=== PATIENT | male | born 1980 | race Caucasian/White ===

== ENCOUNTER 2016-08-20 03:22 | Emergency (ER) | payer MEDICAID, OTHER ==
[~2016-08-20] VITALS: Ht 180.3 cm; Wt 77.3 kg
[~2016-08-20 03:22] MED LIST: NOCURR
[2016-08-20] MEDS ORDERED: SULFAMETHOX/TRIMETH DS 800-160 MG/TABLET PO ONE (07:15)
[2016-08-20] MEDS ORDERED: ACYCLOVIR 200 MG CAPSULE PO ONE (07:15)
[2016-08-20] MEDS ORDERED: KETOROLAC TROMETHAMINE 60 MG/2 ML VIAL IM ONE (07:15)
[2016-08-20] MEDS ORDERED: PredniSONE 20 MG TABLET PO ONE (07:15)
[2016-08-20 07:49] LABS: BASOPHILS % (AUTO) 0.8 % (0.0-2.0); EOSINOPHILS % (AUTO) 1.6 % (1.0-6.0); HEMATOCRIT 40.7 % (41-53); HEMOGLOBIN 13.1 g/dL (13.5-17.5); LYMPHOCYTES # (AUTO) 1.9 K/uL (1.0-4.8); LYMPHOCYTES % (AUTO) 33.4 % (22.0-44.0); MEAN CORPUSCULAR HEMOGLOBIN 29.1 pg (26.0-34.0); MEAN CORPUSCULAR HGB CONC 32.2 G/dL (31.0-37.0); MEAN CORPUSCULAR VOLUME 90 fL (80-100); MONOCYTES % (AUTO) 17.2 % (2.0-9.0); NEUTROPHILS # (AUTO) 2.6 K/uL (1.8-7.7); PLATELET COUNT (AUTO) 269 K/uL (150-450); RED BLOOD CELL COUNT(AUTO) 4.51 MIL/uL (4.50-5.90); RED CELL DISTRIBUTION WIDTH 13.8 % (11.5-14.5); WHITE BLOOD COUNT (AUTO) 5.6 K/uL (4.5-11.0)
[2016-08-20 08:03] LABS: ANION GAP 6 mmol/L (8-16); CARBON DIOXIDE 32 mmol/L (22-29); CHLORIDE 98 mmol/L (98-107); CREATININE 0.94 mg/dL (0.60-1.30); GLOMERULAR FILTR. RATE CALC > 60 mL/min (>60); POTASSIUM 3.4 mmol/L (3.5-5.1); SODIUM SERUM 136 mmol/L (136-145); UREA NITROGEN, BLOOD 11 mg/dL (7-18)
[2016-08-20 08:13] LABS: ALANINE AMINOTRANSFERASE 1385 U/L (12-78); ALBUMIN 2.9 g/dL (3.4-5.0); BILIRUBIN,TOTAL 2.4 mg/dL (0.1-1.0); TOTAL PROTEIN, SERUM 6.5 g/dL (6.4-8.2)
[2016-08-20 08:19] LABS: ASPARTATE AMINOTRANSFERASE 1651 U/L (15-37)
[2016-08-20 10:24] VITALS: BP 104/58
== END 2016-08-20 11:15 | disposition home or self-care (01) ==
LOC: EMS 03:23
DX: R51 Headache (principal); F11.10 Opioid abuse, uncomplicated; K75.9 Inflammatory liver disease, unspecified; L02.222 Furuncle of back [any part, except buttock and flank]
CPT/HCPCS: 36415; 70450; 80053; 80307; 85025; 86140; 96372; 99285; 99407; J1885; J7512